=== PATIENT | female | born 1980 | race Caucasian/White ===

== ENCOUNTER 2023-07-17 01:35 | Emergency (ER) | payer OTHER, MEDICAID ==
[2023-07-17] MEDS: LORazepam 1 MG Tab PO ONE (02:35)
== END 2023-07-17 02:41 | disposition home or self-care (01) ==
LOC: JP.ED 01:35
DX: R25.1 Tremor, unspecified (principal); Z86.19 Personal history of other infectious and parasitic diseases
CPT/HCPCS: 99283; A9270